=== PATIENT | male | born 1975 | race African-American/Black ===

== ENCOUNTER 2016-10-21 12:20 | Emergency (ER) | payer SELFPAY ==
--- NOTE | 2016-10-21 13:12 | ER Document Report ---
ED Medical Screen (RME) - General Chief Complaint: Abdominal Pain Stated Complaint: ABDOMINAL PAIN Notes: Patient is here because he has swelling and pain in his abdomen. He says this is been going on, off and on, for couple of years. He feels bloated. Not vomiting. Last bowel movement was this morning. No blood present. On examining the patient, he has a very large abdominal wall hernia above the umbilicus. I've tried various positions and pressure and cannot get it to reduce, although I don't think it's incarcerated. Patient says it's been like it is now for 6 months. Nothing new or different happened recently that brought him to the emergency department today. TRAVEL OUTSIDE OF THE [place] IN LAST 30 DAYS: No - Related Data Allergies/Adverse Reactions: No Known Allergies Allergy (Verified 10/21/16 12:31) Past Medical History Renal/ Medical History: Denies: Hx Peritoneal Dialysis Past Surgical History: Reports: Hx Orthopedic Surgery - right knee - Immunizations Hx Diphtheria, Pertussis, Tetanus Vaccination: Yes - unknown Physical Exam - Vital signs Vitals: Temp Pulse Resp BP Pulse Ox 98.5 F 80 20 164/108 H 97 10/21/16 12:31 10/21/16 12:31 10/21/16 12:31 10/21/16 12:31 10/21/16 12:31 Course - Vital Signs Vital signs: Temp Pulse Resp BP Pulse Ox 98.5 F 80 20 164/108 H 97 10/21/16 12:31 10/21/16 12:31 10/21/16 12:31 10/21/16 12:31 10/21/16 12:31
--- NOTE | 2016-10-21 14:23 | ER Document Report ---
ED GI/ - General Chief Complaint: Abdominal Pain Stated Complaint: ABDOMINAL PAIN Mode of Arrival: Ambulatory Information source: Patient TRAVEL OUTSIDE OF THE [place] IN LAST 30 DAYS: No - HPI Notes: 10/21/16 14:21 Patient arrives with complaints of hernia and abdominal pain and swelling. The patient states that he had a small umbilical hernia approximately 2 years ago that he believes was partially incarcerated. He had to come the emergency Department to have this reduced. Over the last few years his hernia has gradually gotten bigger. Her last 6 months he states that the hernia is always sticking out. States that he has increased pain there with coughing only. He denies any nausea vomiting or diarrhea. He had a normal bowel movement this morning. He is passing gas normally. He denies fever, dysuria, hematuria. He denies any blood in his stool. No chest pain or shortness of breath. He has never seen anyone for this in the past aside from ER when he was here 2 years ago. He has never followed up with a surgeon regarding this hernia. He'll emergency department today because he is tired of dealing with it. Nothing specifically happened or worsen to make him come the ER today. - Related Data Allergies/Adverse Reactions: No Known Allergies Allergy (Verified 10/21/16 12:31) Past Medical History - Social History Smoking Status: Unknown if Ever Smoked Family History: Reviewed & Not Pertinent Patient has suicidal ideation: No Patient has homicidal ideation: No Renal/ Medical History: Denies: Hx Peritoneal Dialysis Past Surgical History: Reports: Hx Orthopedic Surgery - right knee - Immunizations Hx Diphtheria, Pertussis, Tetanus Vaccination: Yes - unknown Review of Systems - Review of Systems -: Yes All other systems reviewed and negative Physical Exam - Vital signs Vitals: Temp Pulse Resp BP Pulse Ox 98.5 F 80 20 164/108 H 97 10/21/16 12:31 10/21/16 12:31 10/21/16 12:31 10/21/16 12:31 10/21/16 12:31 - General General appearance: Appears well, Alert - HEENT Head: Normocephalic, Atraumatic Eyes: Normal Pupils: PERRL Mucous membranes: Normal Pharynx: Normal Neck: Normal - Respiratory Respiratory status: No respiratory distress Breath sounds: Normal - Cardiovascular Rhythm: Regular Heart sounds: Normal auscultation Murmur: No - Abdominal Inspection: Normal Bowel sounds: Normal Tenderness: Nontender Notes: Large hernia just above the umbilicus. Hernia is nontender. Does not able to be reduced, but is not hard and unlikely to be incarcerated. The patient has a benign abdominal exam otherwise with no other tenderness. - Back Back: Normal, Nontender - Extremities General upper extremity: Normal inspection, Nontender, Normal color, Normal ROM , Normal temperature General lower extremity: Normal inspection, Nontender, Normal color, Normal ROM , Normal temperature, Normal weight bearing. No: Jaylene's sign - Neurological Neuro grossly intact: Yes Cognition: Normal Orientation: AAOx4 [place] Coma Scale Eye Opening: Spontaneous [place] Coma Scale Verbal: Oriented [place] Coma Scale Motor: Obeys Commands [place] Coma Scale Total: 15 Speech: Normal Motor strength normal: LUE, RUE, LLE, RLE Sensory: Normal - Psychological Associated symptoms: Normal affect, Normal mood - Skin Skin Temperature: Warm Skin Moisture: Dry Skin Color: Normal Course - Re-evaluation Re-evalutation: 10/21/16 16:25 Patient's nontoxic appearing with stable vitals. Patient is noted to have a large hernia just above his umbilicus. Hernia is nontender. He is not reducible. He's had no vomiting or signs of obstruction. He had a normal bowel movement today. No fever. CT shows large hernia containing bowel with no signs of obstruction. Patient was instructed to call surgery tomorrow to make a follow-up appointment as soon as possible. He was instructed to return to emergency department if he develops increased pain, fever, persistent vomiting, or any further concerns. The patient is noted to have elevated blood pressure during today's emergency department visit. The patient was informed of this finding. The patient was instructed that this may be related to pre-hypertension and requires further evaluation with a primary care provider. The patient has no hypertensive symptoms at this time. The patient's emergency department workup and current diagnosis were explained to the patient and or family. Follow-up instructions were provided. Medications if prescribed were discussed. Instructions for when to return to the emergency department including specific worrisome symptoms were discussed with the patient and/or family. - Vital Signs Vital signs: Temp Pulse Resp BP Pulse Ox 98.5 F 80 20 164/108 H 97 10/21/16 12:31 10/21/16 12:31 10/21/16 12:31 10/21/16 12:31 10/21/16 12:31 - Diagnostic Test Radiology reviewed: Image reviewed, Reports reviewed - Large umbilical hernia containing transverse colon without signs of obstruction. Discharge - Discharge Clinical Impression: Umbilical hernia Qualifiers: Obstruction and gangrene presence: without obstruction or gangrene Qualified Code(s): K42.9 - Umbilical hernia without obstruction or gangrene Condition: Stable Disposition: HOME, SELF-CARE Instructions: Hernia ([facility]), Umbilical Hernia ([facility]) Additional Instructions: Call and make a follow-up appointment with surgery at the next available appointment. Return immediately to the emergency Department for increased pain , vomiting, fever, or any further concerns. Your blood pressure was elevated during today's visit. Have this rechecked with your doctor. Forms: Elevated Blood Pressure
[2016-10-21 16:52] VITALS: BP 163/93
== END 2016-10-21 16:44 | disposition home or self-care (01) ==
LOC: ER 12:20
DX: K42.9 Umbilical hernia without obstruction or gangrene (principal); R03.0 Elevated blood-pressure reading, without diagnosis of hypertension
CPT/HCPCS: 74176; 99284

== ENCOUNTER 2017-03-01 01:19 | Emergency (ER) | payer BC ==
[2017-03-01] MEDS ORDERED: ONDANSETRON HCL INJ/PF 4 MG/2 ML SDV IV ONE (02:05)
[2017-03-01] MEDS ORDERED: FENTANYL CITRATE INJ/PF 100 MCG/2 ML AMPUL IV ONE ×2 (02:06→03:29)
[2017-03-01 03:11] LABS: ABSOLUTE EOSINOPHILS # (AUTO) 0.2 10^3/uL (0.0-0.6); ABSOLUTE LYMPHOCYTES (AUTO) 2.4 10^3/uL (0.5-4.7); ABSOLUTE MONOCYTES (AUTO) 0.8 10^3/uL (0.1-1.4); ABSOLUTE NEUT (AUTO) 5.3 10^3/uL (1.7-8.2); BASOPHILS % (AUTO) 0.4 % (0-2); EOSINOPHILS % (AUTO) 2.3 % (0-6); HEMATOCRIT 40.3 % (37.9-51.0); HEMOGLOBIN 13.2 g/dL (13.5-17.0); HGB HCT DIFFERENCE -0.7; LYMPHOCYTES % (AUTO) 27.7 % (13-45); MEAN CORPUSCULAR HGB CONC 32.8 g/dL (32.0-36.0); MEAN CORPUSCULAR VOLUME 89 fl (80-97); MONOCYTES % (AUTO) 9.2 % (3-13); RED BLOOD COUNT 4.56 10^6/uL (4.35-5.55); RED CELL DISTRIBUTION WIDTH 15.3 % (11.5-14.0); SEGMENTED NEUTROPHILS % (AUTO) 60.4 % (42-78); WHITE BLOOD COUNT 8.8 10^3/uL (4.0-10.5)
[2017-03-01 03:21] LABS: ALANINE AMINOTRANSFERASE 35 U/L (21-72); ALBUMIN 4.4 g/dL (3.5-5.0); ALKALINE PHOSPHATASE 110 U/L (38-126); ANION GAP 10 (5-19); ASPARTATE AMINO TRANSFERASE 37 U/L (17-59); BILIRUBIN,DIRECT 0.4 mg/dL (0.0-0.4); BILIRUBIN,TOTAL 0.5 mg/dL (0.2-1.3); BLOOD UREA NITROGEN 11 mg/dL (7-20); CALCIUM 9.3 mg/dL (8.4-10.2); CARBON DIOXIDE 28 mmol/L (22-30); CHLORIDE 104 mmol/L (98-107); CREATININE RESULT 1.25 mg/dL (0.52-1.25); GLUCOSE 134 mg/dL (75-110); LIPASE 44.6 U/L (23-300); POTASSIUM 3.7 mmol/L (3.6-5.0); SODIUM 141.6 mmol/L (137-145); TOTAL PROTEIN 8.4 g/dL (6.3-8.2)
--- NOTE | 2017-03-01 03:24 | ER Document Report ---
HPI - HPI Pain Level: 5 Notes: Patient is a 41-year-old male who presents the ED complaining of increased pain to the known umbilical hernia over the last couple hours. Patient states that the hernia has increased in size and is causing nausea and vomiting. Patient states that he did eat a pork chop male at 2230 last night, but has since thrown that up. Patient states that nothing he does help his pain. Patient states that the hernia did not bother him nor was it as large as it was the day before yesterday. Patient's last bowel movement was yesterday. Patient is scheduled at the end of February to meet with a general surgeon. Denies any drug allergies or other significant past medical history. Denies any headache, fever ,URI, sore throat, chest pain, palpitations, syncope, cough, shortness of breath , wheeze, dyspnea, diarrhea, urinary retention, dysuria, hematuria, loss of control of bowel or bladder, or rash. - ROS Notes: REVIEW OF SYSTEMS: CONSTITUTIONAL : Denies fever, chills, or sweats. Denies recent illness. EENT: Denies eye, ear, throat, or mouth pain or symptoms. Denies nasal or sinus congestion or discharge. Denies throat, tongue, or mouth swelling or difficulty swallowing. CARDIOVASCULAR: Denies chest pain. Denies palpitations or racing or irregular heart beat. Denies ankle edema. RESPIRATORY: Denies cough, cold, or chest congestion. Denies shortness of breath, difficulty breathing, or wheezing. GASTROINTESTINAL: see hpi GENITOURINARY: Denies difficulty urinating, painful urination, burning, frequency, blood in urine, or discharge. MUSCULOSKELETAL: Denies back or neck pain or stiffness. Denies joint pain or swelling. SKIN: Denies rash, lesions or sores. NEUROLOGICAL: Denies confusion or altered mental status. Denies passing out or loss of consciousness. Denies dizziness or lightheadedness. Denies headache. Denies weakness or paralysis or loss of use of either side. Denies problems with gait or speech. Denies sensory loss, numbness, or tingling. ALL OTHER SYSTEMS REVIEWED AND NEGATIVE. Dictation was performed using [employer] voice recognition software - REPRODUCTIVE Reproductive: DENIES: : - DERM Skin Color: Normal <CHANNING MOTA - Last Filed: 03/01/17 06:57> Past Medical History - Social History Smoking Status: Unknown if Ever Smoked Family History: Reviewed & Not Pertinent Renal/ Medical History: Denies: Hx Peritoneal Dialysis Past Surgical History: Reports: Hx Orthopedic Surgery - right knee - Immunizations Hx Diphtheria, Pertussis, Tetanus Vaccination: Yes - unknown <CHANNING MOTA - Last Filed: 03/01/17 06:57> Vertical Provider Document - CONSTITUTIONAL Agree With Documented VS: Yes Notes: PHYSICAL EXAMINATION: GENERAL: Well-appearing, well-nourished and in no acute distress. HEAD: Atraumatic, normocephalic. EYES: Pupils equal round and reactive to light, extraocular movements intact, sclera anicteric, conjunctiva are normal. ENT: EAC clear b/l. TM's intact b/l without erythema, fluid, or perforation. Nares patent and without discharge. oropharynx clear without exudates. No tonsilar hypertrophy or erythema. Moist mucous membranes. No sinus tenderness. NECK: Normal range of motion, supple without lymphadenopathy LUNGS: Breath sounds clear to auscultation bilaterally and equal. No wheezes rales or rhonchi. HEART: Regular rate and rhythm without murmurs, rubs, gallops. ABDOMEN: + large bulging from the periumbilical area. Firmness to palp. Large hernia noted. Unable to reduce despite multiple attempts. Pt visualized vomiting during exam. normal bowel sounds present. No CVA tenderness bilaterally. Extremities: No cyanosis, clubbing, or edema b/l. Peripheral pulses 2+. Capillary refill less than 3 seconds. NEUROLOGICAL: Normal speech, normal gait. Normal sensory, motor exams PSYCH: Normal mood, normal affect. SKIN: Warm, Dry, normal turgor, no rashes or lesions noted. - INFECTION CONTROL TRAVEL OUTSIDE OF THE [place] IN LAST 30 DAYS: No - RESPIRATORY O2 Sat by Pulse Oximetry: 94 <CHANNING MOTA - Last Filed: 03/01/17 06:57> Course - Re-evaluation Re-evalutation: 03/01/17 06:49 Patient is an afebrile, well-hydrated, 41-year-old male who presents the ED with an incarcerated umbilical hernia. Reviewed case with Dr. Roy who also reviewed and examined the patient. Both Dr. Roy and myself were unsuccessful with attempts to reduce the hernia. Patient was vomiting throughout his initial stay. Patient was given Zofran as well. Patient is shown to be having hypertension which we have been trying to improve with labetalol and pain control. Patient has received fentanyl 50 mg initially and has since received 2 separate doses of 1 mg Dilaudid which has helped with his pain. Dr. Paul was consulted and evaluated the patient. He states that the patient will need to have the hernia surgically repaired, but would like him to be transferred to [facility]. For now, we are working on improving his blood pressure and controlling his pain. Patient is n.p.o. Other direction per Dr. Paul. 03/01/17 06:58 Dr. Paul would like us to leave the pressure as is (187/144). - Vital Signs Vital signs: Temp Pulse Resp BP Pulse Ox 98.7 F 91 18 199/118 H 94 03/01/17 01:36 03/01/17 01:36 03/01/17 01:36 03/01/17 01:36 03/01/17 01:36 - Laboratory Result Diagrams: 03/01/17 02:53 03/01/17 02:53 Laboratory results interpreted by ca: 03/01/17 02:53 Hgb 13.2 L RDW 15.3 H <CHANNING MOTA - Last Filed: 03/01/17 06:57> - Re-evaluation Re-evalutation: 03/01/17 12:30 pt stable, blood pressure decreased a little with hydralazine IV, no complaints. transport here for him. - Vital Signs Vital signs: Temp Pulse Resp BP Pulse Ox 98.3 F 82 22 H 216/127 H 98 03/01/17 03:28 03/01/17 03:28 03/01/17 09:16 03/01/17 09:16 03/01/17 09:16 - Laboratory Result Diagrams: 03/01/17 02:53 03/01/17 02:53 Laboratory results interpreted by ca: 03/01/17 03/01/17 02:53 02:53 Hgb 13.2 L RDW 15.3 H Glucose 134 H Total Protein 8.4 H <IRENA BANEGAS - Last Filed: 03/01/17 12:31>
[2017-03-01] MEDS ORDERED: HYDROMORPHONE HCL INJ/PF 2 MG/ML AMPULE IV ONE ×2 (03:29→06:49)
[2017-03-01] MEDS ORDERED: LABETALOL HCL INJ 20 MG/4 ML DISP.SYRIN IV ONE ×3 (03:40→05:48)
--- NOTE | 2017-03-01 04:24 | PDOC CONSULTATION ---
Consultation Consult Date: 03/01/17 Attending physician:: MARCI MELTON Consult reason:: Hernia History of Present Illness History of Present Illness: FERN FARIA III is a 41 year old male with a 6 year history of abdominal wall hernia. Patient was seen by Dr. Jorge Alberto Faria at [facility] and referred to Dr. Faheem Xavier in [place] for reconstruction. His appointment with Dr. Xavier was at the end of February. Patient had a large pork chop at 10:30 PM and subsequently developed abdominal pain nausea and vomiting. He was seen in the emergency department several hours ago where he had uncontrolled hypertension. He was given a have a CT scan of the abdomen and pelvis but this was put on hold. Patient was given fentanyl in an attempt to control his pain, and manually reduced the hernia but these efforts were unsuccessful. The patient was seen in the emergency department 4 months ago at [facility] where the CT scan of the abdomen and pelvis which showed incarcerated transverse colon in the abdominal wall hernia. Surgery was consulted this morning at approximately 330 am to evaluate the patient. Past Medical History Medical History: Other - Hypertension, obesity, asthma, borderline diabetes Past Surgical History Past Surgical History: Reports: Orthopedic Surgery - right knee patellar reconstruction, open Social History Smoking Status: Unknown if Ever Smoked Frequency of Alcohol Use: Rare Hx Recreational Drug Use: No Hx Prescription Drug Abuse: No Family History Family History: Reviewed & Not Pertinent, DM, Hypertension Parental Family History Reviewed: Yes Children Family History Reviewed: Yes Sibling(s) Family History Reviewed.: Yes Medication/Allergy Home Medications: Clindamycin HCl [Cleocin 150 mg Capsule] 150 mg PO Q6 #40 capsule 11/04/15 Allergies/Adverse Reactions: No Known Allergies Allergy (Verified 10/21/16 12:31) Review of Systems Constitutional: ABSENT: chills, fever(s), headache(s), weight gain, weight loss Eyes: ABSENT: visual disturbances Ears: ABSENT: hearing changes Cardiovascular: ABSENT: chest pain, dyspnea on exertion, edema, orthropnea, palpitations Gastrointestinal: PRESENT: as per HPI, other - Patient is continued to have bowel movements. Other than the vomiting today patient has been feeling well. Musculoskeletal: ABSENT: joint swelling Integumentary: ABSENT: rash, wounds Neurological: ABSENT: abnormal gait, abnormal speech, confusion, dizziness, focal weakness, syncope Physical Exam Vital Signs: Temp Pulse Resp BP Pulse Ox 98.3 F 82 17 215/122 H 98 03/01/17 03:28 03/01/17 03:28 03/01/17 03:28 03/01/17 03:28 03/01/17 03:28 Intake & Output 02/27/17 02/28/17 03/01/17 06:59 06:59 06:59 Weight 176.901 kg General appearance: PRESENT: mild distress Head exam: PRESENT: normocephalic Eye exam: PRESENT: EOMI Ear exam: PRESENT: normal external ear exam Respiratory exam: PRESENT: wheezes Cardiovascular exam: PRESENT: RRR GI/Abdominal exam: PRESENT: other - Multiple scars on the lower abdomen. There is a large abdominal wall hernia around the periumbilical area, firm and irreducible. Rectal exam: PRESENT: deferred Gentrourinary exam: PRESENT: other - Scar longitudinal right knee Musculoskeletal exam: PRESENT: full ROM Psychiatric exam: PRESENT: anxious Results Laboratory Results: 03/01/17 02:53 03/01/17 02:53 03/01/17 03/01/17 02:53 02:53 WBC 8.8 RBC 4.56 Hgb 13.2 L Hct 40.3 MCV 89 MCH 29.0 MCHC 32.8 RDW 15.3 H Plt Count 219 Seg Neutrophils % 60.4 Lymphocytes % 27.7 Monocytes % 9.2 Eosinophils % 2.3 Basophils % 0.4 Absolute Neutrophils 5.3 Absolute Lymphocytes 2.4 Absolute Monocytes 0.8 Absolute Eosinophils 0.2 Absolute Basophils 0.0 Sodium 141.6 Potassium 3.7 Chloride 104 Carbon Dioxide 28 Anion Gap 10 BUN 11 Creatinine 1.25 Est GFR ( Amer) > 60 Est GFR (Non-Af Amer) > 60 Glucose 134 H Calcium 9.3 Total Bilirubin 0.5 AST 37 ALT 35 Alkaline Phosphatase 110 Total Protein 8.4 H Albumin 4.4 Lipase 44.6 Assessment & Plan - Diagnosis (1) Incarcerated hernia of abdominal cavity Plan: The patient has a chronic, symptomatic, but increasingly painful and distended abdominal wall hernia. This has been neglected. It does need to be repaired. The compounding factors are morbid obesity, and malignant hypertension, uncontrolled. My suggestion is we keep the patient n.p.o., get his blood pressure under control, and make arrangements to get him transferred down to Dr. Xavier and his team in [place] to assist in the timely, optimal repair of this abdominal wall hernia. I have explained above to the patient as well as family, and I believe they understand and agreed to proceed. (2) Obesity Is this a current diagnosis for this admission?: Yes - Time Time Spent: 50 to 70 Minutes Critical Time spent with patient: 15-24 minutes
[2017-03-01] MEDS ORDERED: HYDRALAZINE HCL INJ/PF 20 MG/1 ML SDV IV ONE (11:16)
[2017-03-01 12:44] VITALS: BP 196/98
--- NOTE | 2017-03-02 08:26 | EKG REPORT ---
SEVERITY:- ABNORMAL ECG - SINUS RHYTHM NONSPECIFIC ST-T CHANGES- INFERIOR LEADS : Confirmed by: Kavin Cam MD 02-Mar-2017 08:25:49
== END 2017-03-01 12:40 | disposition short-term general hospital (02) ==
LOC: ER 01:19
DX: K42.0 Umbilical hernia with obstruction, without gangrene (principal); E66.9 Obesity, unspecified; R73.03 Prediabetes; R11.10 Vomiting, unspecified; I10 Essential (primary) hypertension
CPT/HCPCS: 93005; 96376; 99285; 96374; 96375; 36415; 83690; 85025; 80053; 93010; J3010; J0360; J3490; J1170; J2405